=== PATIENT | male | born 1945 | race Caucasian/White ===

== ENCOUNTER 2022-10-24 09:22 | Outpatient (CLI) | payer MEDICARE, OTHER ==
[2022-10-24 10:09] VITALS: BP 128/80
--- NOTE | 2022-10-24 10:09 | SLEEP CARE CONSULTATION ---
Information from patient questionnaire entered by Sebastian Groves. I have reviewed and concur with the information entered by Sebastian Groves. This document represents the service I personally performed and the decisions made by me, Elizabeth Sheets ARNP. History of Present Illness Service Date and Time: 10/24/2022 09 Reason for Visit: New patient, Previously diagnosed sleep apnea, sleep apnea on CPAP therapy Chief Complaint: reports: Other (TRANSFER FROM [facility]) Date of Onset: since 2016 Usual bedtime: 1030-11PM Time it takes to fall asleep: DEPENDS ON HOW TIRED I AM Snores at night: No Observed to quit breathing while asleep: Yes Sleeps alone due to snoring: No Number of times waking at night: 2-3 TIMES Reasons for waking at night: reports: Bathroom Toss, Turn, or Twitch while sleeping: Yes Recalls having dreams: Yes Usually gets out of bed at: 6-7AM Feels refreshed in the morning: No Morning headache: No Sleepy or fatigued during the day: Yes Ever fallen asleep while driving: No Takes day naps: No Dreams during day naps: No Prior sleep studies: Yes ([facility] ) Additional HPI information: ROCK RAZA was previously diagnosed on 06/18/2017 at [facility] to have mild, AHI 7.9, obstructive sleep apnea-hypopnea syndrome and comes today to establish care for CPAP therapy. - Parasomnia Symptoms Ever been unable to move upon waking from sleep: No Walks in sleep: No Talks in sleep: No Ever acted out dreams in sleep: No Ever felt weak in the knees when startled or emotional: No Bothered by creepy, crawly, restless sensations in legs: No Problems with memory or concentration: No CPAP Compliance Data - Data Reviewed with Patient Average duration of nightly device use: 8 hours 36 minutes Compliance rate %: 97.2 (177/180 days used) Current pressure setting (cmH2O): 5-14 Average residual AHI: 3.5 Central apnea: 0 Obstructive apnea: 0.9 Hypopnea: 2.6 Average large leak: 0 Compliance data discussion: He has a Dreamstation 2. [facility] He is using a full face, large cushion. He has back up mask if needed. Subjective Missed days of use due to: reports: other (power outage) Patient concerns: denies: aerophagia, mask discomfort, air blowing in eyes, mask leak noise, condensation in mask/hose, nasal congestion, dry mouth, nose, throat, epistaxis Observed to snore while using device: No Current pressure setting perceived as: comfortable On therapy, patient: reports: sleeping better, awakening more refreshed, being more awake and alert during the day, more rested overall. denies: drowsiness while driving Initial [place] Sleepiness Scale score: 0 (10/24/22) Past Medical History Past Medical History: reports: Coronary Heart Disease Social History The patient's occupation is a RE. Patient is and lives in [place]. Have you smoked in the past 12 months: No Alcohol use: No Caffeine use: Yes Caffeine amount and frequency: 3-4 CUPS COFFEE IN THE MORNING Family History Family history of sleep disordered breathing: No Allergies and Home Medications Known drug allergies: No Drug allergies reviewed: Yes Home medication list reviewed: Yes Allergy and home medication list: Medications: Atenolol Clopidogrel Atorvastatin Review of Systems Weight loss over past 5 years: 12 Cardiovascular: denies: high blood pressure Respiratory: reports: shortness of breath Gastrointestinal: denies: heartburn Urinary: reports: urgency Neurological: denies: headaches Psychiatric: denies: anxiety, depression Ear/Nose/Throat: reports: wisdom teeth removed. denies: tonsillectomy Endocrine: reports: sluggishness Musculoskeletal: reports: joint pain, back pain, muscle pain or cramping Immunologic: reports: itching Physical Exam Vital signs obtained and entered by: SEBASTIAN Pineda MA Blood Pressure: 128/80 (LEFT ARM) Cuff size: regular Heart Rate: 858 O2 Saturation: 98 Height: 6 ft Weight: 276 lb 9.6 oz Body Mass Index: 37.5 BMI Classification: Obese Neck circumference: 25 Heart: regular rate and rhythm Lungs: clear bilaterally Impression and Plan 1. Obstructive Sleep Apnea-Hypopnea Syndrome, mild, with good treatment compliance and good apnea control. On CPAP therapy, the patient has better sleep quality and is more rested overall. Patient has significant improvement of their sleep apnea and is satisfied with current CPAP therapy. Patient denies problems with oral dryness, nasal congestion, epistaxis, skin irritation or aerophagia. Patient's apnea severity and rationale for treatment to reduce apnea, improve sleep quality and reduce cardiovascular and cerebrovascular events was reviewed. I also reviewed the benefit of consistent device use of CPAP for cardiac disease (CHD). 2. Obesity, unspecified. Currently patients BMI is 37.5. Obesity increases the risk of apnea, CPAP pressure requirements and overall health risks especially cardiovascular and diabetes. Thus patient is advised to lose weight. * Continue auto CPAP pressure at 5-14 cmH2O * Update supplies * Notify me if snoring with mask or feeling that the pressure is too much or too little * Attempt to lose weight * Call this office if any problems using CPAP * Return for follow up in 1 year, or sooner if concerns arise Counseling Topics: Spare mask, Weight loss health impact Visit Type: In Office Time Spent with Patient (minutes): 31 Provider Statement: I spent 100% of the Face to Face Visit with the patient with greater than 50% spent counseling the patient and coordination of care.
== END 2022-10-24 09:23 | disposition home or self-care (01) ==
LOC: SC 09:22
PROVIDERS: ATTEND Nurse Practitioner Family
DX: G47.33 Obstructive sleep apnea (adult) (pediatric) (principal); E66.9 Obesity, unspecified; Z68.37 Body mass index [BMI] 37.0-37.9, adult
CPT/HCPCS: 99203; G0463; 99212

== ENCOUNTER 2023-10-24 08:57 | Outpatient (CLI) | payer MEDICARE, OTHER ==
--- NOTE | 2023-10-24 09:24 | Sleep Patient Instructions ---
Sleep Center Visit Summary - Patient Visit Information Reason for Visit: Annual follow-up - Patient Instructions Additional Instructions: You will continue with CPAP therapy with pressure set at 5-14 cmH2O. A supply prescription will be updated with your DME. We encourage you to continue to try to lose weight. Please follow up with the sleep care office in 1 year. - Clinic Information Contact: [facility] [address] [place] [address] [email or web address] T: [phone]
--- NOTE | 2023-10-24 09:29 | SLEEP CARE CONSULTATION ---
Information from patient questionnaire entered by Rand Groves. I have reviewed and concur with the information entered by Rand Groves. This document represents the service I personally performed and the decisions made by me, Elizabeth Sheets ARNP. History of Present Illness Service Date and Time: 10/24/2023 0857 Previous diagnosis: Mild, Obstructive Sleep Apnea-Hypopnea Syndrome AHI: 7.9 (2017) Reason for follow up: annual (LAST SEEN 10/2022) Equipment type: CPAP ([employer] Dreamstation 2; s/u 07/30/2017) Equipment obtained from: [employer] (getting supplies) Mask style: Full face Backup mask available: Yes (old mask) Last cushion change: 2 weeks Prior sleep studies: Yes ([facility] ) HPI additional information: ROCK RAZA was diagnosed to have mild, AHI 7.9, obstructive sleep apnea- hypopnea syndrome and returned today for CPAP therapy annual follow-up. Sleep Study - Results Prior sleep studies: Yes ([facility] ) CPAP Compliance Data - Data Reviewed with Patient Average duration of nightly device use: 8 hours 25 minutes Compliance rate %: 98.6 (360/365 days used) Current pressure setting (cmH2O): 5-14 (avg 8.7, peak 11) Average residual AHI: 4.9 Central apnea: 0.1 Obstructive apnea: 1.2 Hypopnea: 3.6 Average large leak: 0 secs Subjective Missed days of use due to: reports: illness (in hospital), other (power outage) Patient concerns: denies: aerophagia, mask discomfort, air blowing in eyes, mask leak noise, condensation in mask/hose, nasal congestion, dry mouth, nose, throat, epistaxis Observed to snore while using device: No Current pressure setting perceived as: comfortable On therapy, patient: reports: sleeping better, awakening more refreshed, being more awake and alert during the day, more rested overall. denies: drowsiness while driving Initial [place] Sleepiness Scale score: 0 (10/24/22) Current [place] Sleepiness Scale score: 0 (10/24/23) Allergies and Home Medications Known drug allergies: No Drug allergies reviewed: Yes Home medication list reviewed: Yes (as listed in EMR) Allergy and home medication list: Allergies No Known Drug Allergies Allergy (Verified 10/24/22 09:39) Home Medications Medication Instructions Recorded Confirmed Last Taken Type Atorvastatin [Lipitor] See Rx Instructions .ROUTE .COMPLEX 10/24/22 10/24/23 Unknown History Clopidogrel Bisulfate [Plavix] See Rx Instructions .ROUTE .COMPLEX 10/24/22 10/24/23 Unknown History atenoloL [Tenormin] See Rx Instructions .ROUTE .COMPLEX 10/24/22 10/24/23 Unknown History Apixaban [Eliquis] See Rx Instructions .ROUTE .COMPLEX 10/24/23 10/24/23 Unknown History Metoprolol Succinate [Toprol Xl] See Rx Instructions .ROUTE .COMPLEX 10/24/23 10/24/23 Unknown History Review of Systems Review of systems same as previous: No (Atrial fibrillation; ablation done) Physical Exam Vital signs obtained and entered by: RAND Pineda MA Blood Pressure: 127/82 (LEFT ARM) Cuff size: regular Heart Rate: 84 O2 Saturation: 99 Height: 6 ft Weight: 273 lb Weight change since last visit: 3 lb loss Body Mass Index: 37.0 BMI Classification: Obese Impression and Plan 1. Obstructive Sleep Apnea-Hypopnea Syndrome, mild, with good treatment compliance and good apnea control. On CPAP therapy, the patient has better sleep quality and is more rested overall. Patient has significant improvement of their sleep apnea and is satisfied with current CPAP therapy. Patient denies problems with oral dryness, nasal congestion, epistaxis, skin irritation or aerophagia. Patient's apnea severity and rationale for treatment to reduce apnea, improve sleep quality and reduce cardiovascular and cerebrovascular events was reviewed. I also reviewed the benefit of consistent device use of CPAP for cardiac disease (CHD). He says he is currently being treated for atrial fibrillation. 2. Obesity, unspecified. Currently patients BMI is 37. He has lost weight. Obesity increases the risk of apnea, CPAP pressure requirements and overall health risks especially cardiovascular and diabetes. Thus patient is advised to continue to try to lose weight. * Continue auto CPAP pressure at 5-14 cmH2O * Update supply prescription * Notify me if snoring with mask or feeling that the pressure is too much or too little * Attempt to lose weight * Call this office if any problems using CPAP * Return for follow up in 12 months, or sooner if concerns arise Counseling Topics: Spare mask, Weight loss health impact Prescriptions: Device supplies Follow up with Sleep Care in: 1 year Visit Type: In Office Time Spent with Patient (minutes): 20 Provider Statement: I spent 100% of the Face to Face Visit with the patient with greater than 50% spent counseling the patient and coordination of care.
[2023-10-24 09:36] VITALS: BP 127/82; O2SAT 99
== END 2023-10-24 08:58 | disposition home or self-care (01) ==
LOC: SC 08:57
PROVIDERS: ATTEND Nurse Practitioner Family
DX: G47.33 Obstructive sleep apnea (adult) (pediatric) (principal); E66.9 Obesity, unspecified; Z68.37 Body mass index [BMI] 37.0-37.9, adult
CPT/HCPCS: 99213; G0463; 99212